=== PATIENT | female | born 1970 | race Two or more races ===

== ENCOUNTER 2024-12-09 21:52 | Inpatient (IN) | payer OTHER ==
[~2024-12-09] VITALS: Ht 152.4 cm; Wt 79.8 kg
--- NOTE | 2024-12-09 21:59 | NUR ---
PTE ALERTA Y ORIENTADA X 3 ESFERAS QUIEN REFIERE DOLOR ABDOMINAL Y TIENE ESTUDIOS QUE INDICAN PERFORACION EN AREA DE INTESTINO.PTE REFIERE DOLOR ENN LADO LT.
[2024-12-09] MEDS ORDERED: SYNTHROID88 MCG (22:00)
[2024-12-09] MEDS ORDERED: FAMOtidine 10 MG/ML (4ML VIAL) IV ONE (22:45)
[2024-12-09] MEDS ORDERED: PIPERACILLIN/TAZOBACTAM SODIUM 3.375 GM VIAL IV ONE ×2 (22:45→23:18)
[2024-12-09] MEDS ORDERED: FAMOTIDINE/PF 20 MG/2 ML VIAL ONE (23:18)
--- NOTE | 2024-12-09 23:33 | NUR ---
PTE ALERTA Y ORIENTADA X3, RN [place] ORIENTA SOBRE TX MEDICO,REFIERE ACEPTAR. CANALIZA Y COLECTA MUESTRAS DE LAB BAJO MEDIDAS ASEPTICAS. ADMINISTRA MEDS MEDARDO ORDEN MEDICA. PEND A REALIZAR XRAY
[2024-12-09] MEDS ORDERED: MORPHINE SULFATE 2 MG/ML SYRINGE IV PRN (23:45)
[2024-12-09] MEDS ORDERED: 0.9 % SODIUM CHLORIDE 1,000 ML IV SCH (23:45)
[2024-12-09] MEDS ORDERED: ACETAMINOPHEN 500 MG GEL..CAP PO PRN (23:45)
[2024-12-09] MEDS ORDERED: ONDANSETRON HCL 4 MG in 0.9 % SODIUM CHLORIDE 50 ML IV PRN (23:45)
[2024-12-10] MEDS ORDERED: PIPERACILLIN/TAZOBACTAM SODIUM 3.375 GM in DEXTROSE 5 % IN WATER 100 ML IV SCH
[2024-12-10 00:47] LABS: PARTIAL THROMBOPLASTIN TIME 30.5 SECONDS (22.0-34.0); PROTHROMBIN TIME 10.9 SECONDS (9.0-11.5)
[2024-12-10 00:52] LABS: BILIRUBIN TOTAL 0.83 mg/dL (0.3-1.2); CALCIUM 9.5 mg/dL (8.5-10.1); CREATININE SERUM 0.84 mg/dL (0.55-1.02); GFR 70.92; GLOBULINA 4.6 G/DL (2.4-3.5); POTASSIUM 3.8 mEq/L (3.5-5.1); TOTAL PROTEIN 8.6 gm/dL (6.4-8.2)
[2024-12-10 00:54] LABS: HEMATOCRIT 44.5 % (36.0-45.00); HEMOGLOBIN 14.9 g/dL (12.0-15.00); MEAN CELL VOLUME 91.6 fL (80.00-100.00); MEAN CORPUSCULAR HEMOGLOBIN 30.7 pg (27.00-32.0); MEAN CORPUSCULAR HGB CONC 33.5 g/dl (32.0-36.0); PLATELET COUNT 234 K/uL (150-450); RED BLOOD COUNT 4.86 M/uL (4.00-6.00); RED CELL DISTRIBUTION WIDTH 12.4 % (11.5-14.5)
[2024-12-10 01:01] LABS: URINE APPEARANCE Clear; URINE BILIRRUBIN Negative (NEGATIVE); URINE BLOOD Small; URINE COLOR Yellow; URINE GLUCOSE Negative (NEGATIVE); URINE KETONE 15 (NEGATIVE); URINE LEUKOCYTE Negative; URINE NITRATE Negative; URINE PROTEIN Negative (NEGATIVE); URINE UROBILINOGEN 0.2 E.U./dl
[2024-12-10 01:05] LABS: URINE BACTERIA 29.3 uL (0.0-1933); URINE EPITHELIAL CELLS 26.9 uL (0.0-38.8); URINE RBC 74.9 uL (0.0-20.8); URINE WBC 22.6 uL (0.0-23.2)
[2024-12-10 01:07] VITALS: BP 116/74
[2024-12-10] MEDS ORDERED: LEVOTHYROXINE SODIUM 88 MCG TABLET PO SCH (06:00)
[2024-12-10 06:42] VITALS: BP 118/75
[2024-12-10] MEDS ORDERED: DIATRIZOATE MEGLUMINE, SODIUM 30 ML BOTTLE PO NR (08:00)
[2024-12-10 08:18] VITALS: BP 108/73
[2024-12-10] MEDS ORDERED: FAMOTIDINE/PF 20 MG in 0.9 % SODIUM CHLORIDE 8 ML IV PUSH SCH (09:00)
[2024-12-10] MEDS ORDERED: ENOXAPARIN SODIUM 40 MG/0.4 ML SYRINGE SUBCUTANEO SCH (09:00)
[2024-12-10 16:57] VITALS: BP 130/80; O2SAT 100
[2024-12-11 00:30] VITALS: BP 114/48
[2024-12-11] MEDS ORDERED: DIATRIZOATE MEGLUMINE, SODIUM 30 ML BOTTLE PO NR (07:00)
[2024-12-11 08:32] VITALS: BP 111/65; O2SAT 98
[2024-12-11 16:52] VITALS: BP 126/72
[2024-12-12 00:57] VITALS: BP 122/81
[2024-12-12 05:26] LABS: HEMATOCRIT 43.7 % (36.0-45.00); HEMOGLOBIN 14.8 g/dL (12.0-15.00); MEAN CELL VOLUME 90.9 fL (80.00-100.00); MEAN CORPUSCULAR HEMOGLOBIN 30.8 pg (27.00-32.0); MEAN CORPUSCULAR HGB CONC 33.9 g/dl (32.0-36.0); PLATELET COUNT 230 K/uL (150-450); RED BLOOD COUNT 4.81 M/uL (4.00-6.00); RED CELL DISTRIBUTION WIDTH 12.3 % (11.5-14.5)
[2024-12-12 06:26] LABS: ALBUMIN 3.7 gm/dL (3.4-5.0); BILIRUBIN TOTAL 1.01 mg/dL (0.3-1.2); CALCIUM 9.1 mg/dL (8.5-10.1); CREATININE SERUM 0.84 mg/dL (0.55-1.02); GFR 70.92; GLOBULINA 3.9 G/DL (2.4-3.5); MAGNESIUM 2.1 mg/dL (1.8-2.4); PHOSPHOROUS 3.1 mg/dL (2.5-4.9); POTASSIUM 4.3 mEq/L (3.5-5.1); TOTAL PROTEIN 7.6 gm/dL (6.4-8.2)
[2024-12-12 06:27] LABS: C-REACTIVE PROTEIN 2.15 MG/DL (0.00-0.29)
[2024-12-12 07:46] VITALS: BP 117/79; O2SAT 99
[2024-12-12] MEDS ORDERED: KETOROLAC TROMETHAMINE 30 MG VIAL IV PRN (09:30)
[2024-12-12 17:35] VITALS: BP 137/88
[2024-12-13 02:17] VITALS: BP 121/79; O2SAT 97
[2024-12-13] MEDS ORDERED: FAMOTIDINE/PF 20 MG/2 ML VIAL ONE (08:01)
[2024-12-13 08:39] VITALS: BP 117/80; O2SAT 97
[2024-12-13] MEDS ORDERED: DIATRIZOATE MEGLUMINE, SODIUM 30 ML BOTTLE PO STA (15:58)
[2024-12-13] MEDS ORDERED: DEXAMETHASONE SODIUM PHOSPHATE 4 MG/ML VIAL IM PRN (17:00)
[2024-12-13] MEDS ORDERED: AMINO ACIDS 4.25 %/DEXTROSE 5% 1,000 ML PERIFERAL SCH (17:00)
[2024-12-13 17:41] VITALS: BP 134/79
[2024-12-14 02:00] VITALS: BP 142/81; O2SAT 97
[2024-12-14] MEDS ORDERED: ONDANSETRON HCL 2 MG/ML VIAL ONE (07:25)
[2024-12-14] MEDS ORDERED: PIPERACILLIN/TAZOBACTAM SODIUM 3.375 GM VIAL IV ONE (07:26)
[2024-12-14] MEDS ORDERED: FAMOTIDINE/PF 20 MG/2 ML VIAL ONE (07:26)
[2024-12-14 08:42] VITALS: BP 139/87; O2SAT 100
[2024-12-14] MEDS ORDERED: ORPHENADRINE CITRATE 30 MG/ML AMPUL IV STA (10:57)
[2024-12-14] MEDS ORDERED: KETOROLAC TROMETHAMINE 60 MG VIAL IM STA (10:57)
[2024-12-14] MEDS ORDERED: ORPHENADRINE CITRATE 30 MG/ML AMPUL IV PRN (11:00)
[2024-12-14 18:20] VITALS: BP 120/85
[2024-12-15] MEDS ORDERED: DEXTROSE 5%-WATER 100ML IV.SOLN ONE (00:35)
[2024-12-15 01:27] VITALS: BP 114/74; O2SAT 98
[2024-12-15 09:17] VITALS: BP 118/74
[2024-12-15] MEDS ORDERED: LACTOBACILLUS ACIDOPHILUS 1 CAP CAP PO SCH (17:00)
[2024-12-15 18:43] VITALS: BP 132/85
[2024-12-16 02:13] VITALS: BP 100/51; O2SAT 99
[2024-12-16 07:36] LABS: HEMATOCRIT 39.4 % (36.0-45.00); HEMOGLOBIN 13.5 g/dL (12.0-15.00); MEAN CELL VOLUME 88.8 fL (80.00-100.00); MEAN CORPUSCULAR HEMOGLOBIN 30.5 pg (27.00-32.0); MEAN CORPUSCULAR HGB CONC 34.3 g/dl (32.0-36.0); PLATELET COUNT 172 K/uL (150-450); RED BLOOD COUNT 4.43 M/uL (4.00-6.00); RED CELL DISTRIBUTION WIDTH 12.2 % (11.5-14.5)
[2024-12-16 08:09] LABS: ALBUMIN 3.1 gm/dL (3.4-5.0); BILIRUBIN TOTAL 0.66 mg/dL (0.3-1.2); CALCIUM 8.8 mg/dL (8.5-10.1); CREATININE SERUM 0.64 mg/dL (0.55-1.02); GFR 97.07; GLOBULINA 3.2 G/DL (2.4-3.5); MAGNESIUM 1.9 mg/dL (1.8-2.4); PHOSPHOROUS 3.3 mg/dL (2.5-4.9); POTASSIUM 3.6 mEq/L (3.5-5.1); TOTAL PROTEIN 6.3 gm/dL (6.4-8.2)
[2024-12-16 08:11] LABS: C-REACTIVE PROTEIN 0.46 MG/DL (0.00-0.29)
[2024-12-16 08:38] VITALS: BP 112/76; O2SAT 100
[2024-12-16 17:00] VITALS: BP 118/81; O2SAT 99
[2024-12-17 01:40] VITALS: BP 115/70; O2SAT 97
[2024-12-17 08:29] VITALS: BP 109/75
== END 2024-12-17 12:48 | disposition home or self-care (01) | DRG 392 ==
LOC: ER 21:55 → MEDJ 23:50 → MEDI 12-13 12:44 → MEDJ 12-13 13:48
PROVIDERS: General Practice; Internal Medicine Infectious Disease; ADMIT Internal Medicine; ATTEND Internal Medicine
PROC: BW21YZZ Computerized Tomography (CT Scan) of Abdomen and Pelvis using Other Contrast (ICD-10-PCS; principal; 2024-12-13)
PROC: 3E0336Z Introduction of Nutritional Substance into Peripheral Vein, Percutaneous Approach (ICD-10-PCS; 2024-12-14)
DX: K57.20 Diverticulitis of large intestine with perforation and abscess without bleeding (principal); K90.49 Malabsorption due to intolerance, not elsewhere classified